=== PATIENT | male | born 1975 | race African-American/Black ===

== ENCOUNTER 2022-05-11 12:55 | Emergency (ER) | payer BC ==
[~2022-05-11] VITALS: Ht 180.3 cm; Wt 100.0 kg
[2022-05-11 13:23] VITALS: BP 136/83
[2022-05-11] MEDS ORDERED: NAPROXEN 250MG TABLET PO ONE (18:15)
[2022-05-11] MEDS ORDERED: ACETAMINOPHEN 325MG TABLET PO ONE (18:15)
[2022-05-11] MEDS ORDERED: NAPR-681 MT (18:24)
[2022-05-11] MEDS ORDERED: ACET-2708 MT (18:24)
== END 2022-05-11 19:07 | disposition home or self-care (01) ==
LOC: ER 12:55
DX: M25.562 Pain in left knee (principal)
CPT/HCPCS: 73560; 99283; L1830; Z7610